=== PATIENT | female | born 1950 | race Caucasian/White ===

== ENCOUNTER 2023-03-22 06:05 | Day surgery (SDC) | payer MEDICARE ==
[~2023-03-22 06:05] MED LIST: Ak-Dilate OPHTHALMIC*** 1.065 ML, Cyclogyl 1% OPHTH SOL 1.065 ML, GATIFLOXACIN 0.5% OPH... OP ONE; BETADINE 5% OPHTHALMIC 30 ML OP ONE; Lactated Ringers 1,000 ML IV SCH; NON-FORMULARY ITEM OP ONE; TETRACAINE 0.5% STERI-UNIT SOL OP ONE; cefUROXime sodium 0.005 GM in Sodium Chloride Flush 30 ML*** 0.5 ML IJ ONE
[2023-03-22] MEDS ORDERED: Epinephrine Preservative Free 1 MG/ML IJ ONE (06:06)
[2023-03-22] MEDS ORDERED: Lactated Ringers 1,000 ML IV ONE (06:21)
[2023-03-22] MEDS ORDERED: ACETAZOLAMIDE 250 MG TABLET PO ONE (07:30)
[2023-03-22] MEDS ORDERED: Zofran 4 MG/2 ML VIAL IV PRN (07:30)
[2023-03-22] MEDS ORDERED: DIPRIVAN 200 MG/20 ML IV ONE ×2 (08:06→08:19)
[2023-03-22 08:45] VITALS: BP 126/65; PULSE 67; O2SAT 96
== END 2023-03-22 08:52 | disposition home or self-care (01) ==
LOC: SDC 06:05
PROVIDERS: ATTEND Ophthalmology
DX: H25.812 Combined forms of age-related cataract, left eye (principal); E11.9 Type 2 diabetes mellitus without complications
CPT/HCPCS: 82947; 99100; C1780; J0171; J2704; A9270-GY

== ENCOUNTER 2023-04-19 09:33 | Day surgery (SDC) | payer MEDICARE ==
[~2023-04-19 09:33] MED LIST changes: +ACETAZOLAMIDE 250 MG TABLET PO ONE; +Zofran 4 MG/2 ML VIAL IV PRN
[2023-04-19] MEDS ORDERED: Epinephrine Preservative Free 1 MG/ML IJ ONE (09:34)
[2023-04-19] MEDS ORDERED: Lactated Ringers 1,000 ML IV ONE (09:44)
[2023-04-19] MEDS ORDERED: DIPRIVAN 200 MG/20 ML IV ONE ×2 (12:56→13:12)
[2023-04-19 13:36] VITALS: BP 110/63; PULSE 61; O2SAT 97
== END 2023-04-19 13:42 | disposition home or self-care (01) ==
LOC: SDC 09:33
PROVIDERS: ATTEND Ophthalmology
DX: H25.811 Combined forms of age-related cataract, right eye (principal); E11.9 Type 2 diabetes mellitus without complications
CPT/HCPCS: 82947; 99100; C1780; J0171; J2704; A9270-GY